=== PATIENT | female | born 1990 | race Caucasian/White ===

== ENCOUNTER 2023-09-19 13:13 | Emergency (ER) | payer MEDICAID, OTHER ==
[~2023-09-19] VITALS: Ht 172.7 cm; Wt 99.2 kg
[2023-09-19] MEDS ORDERED: TRAZ-252 (13:26)
[2023-09-19] MEDS ORDERED: LAMO200T3 (13:26)
[2023-09-19] MEDS ORDERED: BUPR150T12 (13:26)
[2023-09-19] MEDS ORDERED: SERTRALINE (13:26)
[2023-09-19] MEDS ORDERED: FERR325T19 (13:26)
[2023-09-19] MEDS ORDERED: BUPR300T92 (13:26)
[2023-09-19] MEDS ORDERED: LEVO25TA5 (13:26)
[2023-09-19] MEDS ORDERED: methocarbamoL 750 MG TAB PO ONE (18:05)
[2023-09-19] MEDS ORDERED: KETOROLAC 60MG 2ML VIAL IM ONE (18:05)
[2023-09-19] MEDS ORDERED: LIDOCAINE 5% (LIDODERM) PATCH TD ONE (18:05)
[2023-09-19] MEDS ORDERED: METH-1165 PO (18:09)
[2023-09-19] MEDS ORDERED: NAPR-837 PO (18:09)
[2023-09-19] MEDS ORDERED: ASPE4PAD TOP (18:09)
[2023-09-19 18:15] VITALS: BP 134/69; TEMP 97.7; O2SAT 97
== END 2023-09-19 18:31 | disposition home or self-care (01) ==
LOC: M ED 13:13
DX: M54.50 Low back pain, unspecified (principal); Z79.1 Long term (current) use of non-steroidal anti-inflammatories (NSAID); Z79.891 Long term (current) use of opiate analgesic; Z79.899 Other long term (current) drug therapy
CPT/HCPCS: 72110; 96372; 99283; J1885